=== PATIENT | male | born 1950 | race Caucasian/White ===

== ENCOUNTER 2019-04-18 10:01 | Emergency (ER) | payer MEDICARE, BC ==
[2019-04-18 10:27] VITALS: BP 146/85
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
== END 2019-04-18 11:00 | disposition home or self-care (01) ==
LOC: UCCORT 10:01
DX: J32.9 Chronic sinusitis, unspecified (principal); Z87.891 Personal history of nicotine dependence
CPT/HCPCS: 99202; G0463